=== PATIENT | female | born 1980 | race Hispanic/Latino ===

== ENCOUNTER 2018-10-30 14:46 | Outpatient (CLI) | payer OTHER | END 2018-10-30 14:47 | disposition home or self-care (01) | LOC: BICMAMMO 14:46 | PROVIDERS: ATTEND Family Medicine | DX: N64.4 Mastodynia (principal) | CPT/HCPCS: 77066; G0279 ==

== ENCOUNTER 2020-08-30 00:19 | Emergency (ER) | payer SELFPAY ==
--- NOTE | 2020-08-30 09:59 | ULT ---
PRELIMINARY REPORT/[facility]/EMERGENCY AFTER HOURS PROCEDURE Receipt of this report by the clinical staff was confirmed with MORA GARCÍA MD by Candi Michel on Aug 30, 2020 01:56:00 CDT. Addendum electronically signed by Candi Michel on August 30, 2020 1:56:53 AM CDT EXAM: US Pelvis, Complete. CLINICAL HISTORY: HX: RLQ PAIN, EVAL ADNEXAL MASS. SEE NOTES ON LAST IMAGE. THANKS TECHNIQUE: Transvaginal abdominal pelvic ultrasound (complete) with image documentation. COMPARISON: None provided. FINDINGS: ENDOMETRIUM: Normal thickness. UTERUS/CERVIX: Normal size and contour. No fibroid detected. RIGHT OVARY: Within the right adnexa is a large anechoic lesion that measures 11.0 x 7.1 x 12.4 cm. No significan t vascularity, internal complexity, septations, or mural nodularity. Doppler interrogation of the visualized right ovarian tissue demonstrates normal blood flow. LEFT OVARY: Normal follicles. No adnexal mass. Normal blood flow. FREE FLUID: No free fluid. IMPRESSION: Large right adnexal cyst as described above. Overall, there are no suspicious features and Doppler i nterrogation of the visualized right ovarian tissue demonstrates normal blood flow. However, given size, cannot exclude transient torsion. Additionally, the large cyst predisposes the right ovary to torsion. ELECTRONICALLY SIGNED BY: Christian Jimenez MD Aug 30, 2020 1:52:29 AM CDT This report is intended for review by the ordering physician only, in accordance of law. If you recei ve this report in error, please call [facility] at [phone]. FINAL REPORT Final report by Dr. Dennis Emergency after-hours study ULTRASOUND PELVIC ULTRASOUND TRANSVAGINAL DOPPLER DUPLEX: DATE: 08/30/2020 1:32 AM HISTORY: 39-year-old female with right pelvic pain and left adnexal mass found on CT. TECHNIQUE: Transabdominal transducer and endovaginal transducer used to visualize intrapelvic contents with villalobos scale, color-flow, and spectral analysis. FINDINGS: Uterus:7 x 4 x 5.5 cm.. Endometrial stripe:0.3 cm (3 mm). Right ovary:Located near midline superior to the uterine fundus.Normal size. Left ovary:Normal size. . Uterine leiomyoma (fibroid):None Blood flow in ovaries:Bilaterally demonstrated Ovarian cyst:Huge, thin-walled, 12.5 x 8 x 10 cm simple cyst in upper pelvis, lower abdomen, centered to the left of midline. It is in contact with both the right and left ovaries, and therefore it is uncertain from which ovary it is arising. The left ovary Contains a 2 cm internal cyst. Free fluid in the cul-de-sac:None Agree with preliminary report by [facility]. IMPRESSION: Huge simple-appearing ovarian cyst. Uncertain whether it is arising from the right ovary or the left. Currently, there is no evidence of ovarian torsion, but the size of the cyst increases the risk for ovarian torsion. Transcribed Date/Time: 08/30/2020 11:20 AM
== END 2020-08-30 02:20 | disposition home or self-care (01) ==
LOC: ERS 00:19
DX: N83.201 Unspecified ovarian cyst, right side (principal)
CPT/HCPCS: 76856